=== PATIENT | male | born 2005 | race Caucasian/White ===

== ENCOUNTER 2023-04-30 14:47 | Emergency (ER) | payer SELFPAY ==
[~2023-04-30] VITALS: Ht 160 cm; Wt 126.0 kg
[2023-04-30 14:48] VITALS: BP 143/97
[2023-04-30] MEDS ORDERED: HYDROcodone/ACETAMINOPHEN 5 MG/325 MG TABLET PO ONE (15:15)
[2023-04-30] MEDS ORDERED: LIDOCAINE 1% INJ 20 ML VIAL INJ ONE (15:15)
[2023-04-30] MEDS ORDERED: cefTRIAXone 1,000 MG VIAL IV/IM IM ONE (15:15)
[2023-04-30] MEDS ORDERED: KETOROLAC 60 MG/2 ML VIAL IM ONE (15:15)
--- NOTE | 2023-04-30 15:17 | ED EENT ---
History of Present Illness General Chief Complaint: Ear Problems Stated Complaint: LILIA EAR PAIN Nursing Triage Note: Patient c/o bilat. ear pain. Patient states he went to the clinic last night and was Dx. with bilat. ear infections. Patient states he was prescribed Amoxicillin and ear drops. Patient states is pain is not getting better. Patient states he took IBU this am around 0540 and Tylenol around 1240 today, but denies taking any other doses for the pain. Source: patient Exam Limitations: no limitations History of Present Illness Date Seen by Provider: Apr 30, 2023 Time Seen by Provider: 15:01 Initial Comments This 18-year-old young man presents to the emergency room accompanied by a female hand stone polisher presumed to be his mother with complaints of bilateral ear pain that is rather severe in nature. He was seen at the [facility] walk-in clinic yesterday and diagnosed with bilateral ear infection. He was started on amoxicillin, 1 tablet twice daily. He has had 2 doses. He took ibuprofen 800 mg this morning at about 0530 and Tylenol this after reviewed at approximately 1245. He is still in significant pain. He has a mild elevation in blood pressure and tachycardia. He is noted to be diaphoretic but he is also wearing long sleeves on this 97 degree day. He refers to his ear infections as swimmers ear. He is not febrile at present and has not had a reported measured fever. Allergies and Home Medications Allergies Coded Allergies: No Known Drug Allergies (Unverified , 04/30/23) Patient Home Medication List Home Medication List Reviewed: Yes Amoxicillin (Amoxicillin) 250 Mg Tab.chew, 1,000 MG PO BID Prescribed by: UTE FISHER on 04/30/23 1518 Hydrocodone/Acetaminophen (Hydrocodone-Acetamin 5-325 mg) 5 Mg-325 Mg Tablet, 1 TAB PO Q4H PRN for PAIN BREAKTROUGH Prescribed by: UTE FISHER on 04/30/23 1519 Review of Systems Review of Systems Constitutional: see HPI Eyes: No Symptoms Reported Ears: See HPI Nose: no symptoms reported Mouth: no symptoms reported Throat: no symptoms reported Respiratory: no symptoms reported Cardiovascular: no symptoms reported Gastrointestinal: no symptoms reported Musculoskeletal: no symptoms reported Skin: no symptoms reported Neurological: No Symptoms Reported Hematologic/Lymphatic: No Symptoms Reported Immunological/Allergic: no symptoms reported Past Vrtpsmn-Wkheqi-Ehsueg Hx Patient Social History Tobacco Use?: No Smoking Status: Never a Smoker Use of E-Cig and/or Vaping dev: No Substance use?: No Alcohol Use?: No Immunizations Up To Date Influenza Vaccine Up-to-Date: No; Not Current Past Medical History Surgeries: Yes Adenoidectomy, Tonsillectomy Respiratory: No Cardiac: No Neurological: No Genitourinary: No Gastrointestinal: No Musculoskeletal: No Endocrine: No HEENT: No Cancer: No Psychosocial: No Physical Exam Vital Signs Vital Signs - First Documented 04/30/23 14:48 Temp 36.5 Pulse 122 Resp 12 B/P (MAP) 143/97 (112) O2 Delivery Room Air Height, Weight, BMI Height: '" Weight: lbs. oz. kg; 49.00 BMI Method: General Appearance: WD/WN, no apparent distress Eyes: bilateral eye normal inspection Ears: bilateral ear auricle normal, bilateral ear TM normal, bilateral ear swelling (Of the canals), bilateral ear tenderness (Canal), bilateral ear other (No mastoid tenderness bilaterally) Nose: normal inspection Mouth/Throat: pharynx normal, other (Postnasal drainage in the posterior pharynx) Neck: normal inspection, other (No enlarged cervical lymph nodes. Region of cervical lymph nodes is tender) Cardiovascular: no edema, no murmur, tachycardia Respiratory: lungs clear, normal breath sounds, no respiratory distress Neurologic/Psychiatric: no motor/sensory deficits, alert, normal mood/affect, oriented x 3 Skin: normal color, diaphoresis Progress/Results/Core Measures Results/Orders My Orders Orders - UTE DA SILVA MD Ketorolac Injection (Toradol Injection) (04/30/23 15:15) Hydrocodone/Apap 5/325 Tablet (Hydrocod (04/30/23 15:15) Ceftriaxone Iv/Im (Ceftriaxone Iv/Im) (04/30/23 15:15) Lidocaine 1% Inj 20 Ml (Xylocaine 1% Inj (04/30/23 15:15) Medications Given in ED Current Medications Medications Dose Ordered Sig/Margaret Route Start Time Stop Time Status Last Admin Dose Admin Acetaminophen/ Hydrocodone Bitart 1 ea ONCE ONCE PO 04/30/23 15:15 04/30/23 15:16 DC 04/30/23 15:24 1 EA Ceftriaxone Sodium 1,000 mg ONCE ONCE IM 04/30/23 15:15 04/30/23 15:16 DC 04/30/23 15:25 1,000 MG Ketorolac Tromethamine 60 mg ONCE ONCE IM 04/30/23 15:15 04/30/23 15:16 DC 04/30/23 15:26 60 MG Lidocaine HCl 2.1 ml ONCE ONCE INJ 04/30/23 15:15 04/30/23 15:16 DC 04/30/23 15:25 2.1 ML Vital Signs/I&O 04/30/23 14:48 Temp 36.5 Pulse 122 Resp 12 B/P (MAP) 143/97 (112) O2 Delivery Room Air Blood Pressure Mean: 112 Progress Progress Note : Progress Note WithPatient was treated with a Toradol injection and hydrocodone. Rocephin injection was administered to help expedite treatment of the otitis externa. Tympanic membranes appeared unremarkable no obvious perforation, erythema, or purulent effusion. Patient had only been taking 1 amoxicillin tablet twice daily. I advised him to increase his dosing to 1000 mg. He reported inability to swallow pills. Chewable tablets were prescribed. A small quantity of hydrocodone was prescribed for breakthrough pain. See discharge instructions for further discussion. His hypertension and tachycardia were likely secondary to pain response. Departure Impression Primary Impression: Bilateral otitis externa Qualified Codes: H60.333 - Swimmer's ear, bilateral Additional Impression: Otalgia of both ears Disposition: 01 HOME, SELF-CARE Condition: Stable Departure-Patient Inst. Decision time for Depature: 15:12 Referrals: [facility] (PCP/Family) Primary Care Physician Patient Instructions: Outer Ear Infection ED Add. Discharge Instructions: Drink plenty of clear liquids to stay well-hydrated. The Toradol injection you received in the ER takes the place of your ibuprofen dose. Do not take any more ibuprofen until 9:30 this evening. For primary pain control, take ibuprofen up to 600 mg every 6 hours as needed. For pain not controlled by ibuprofen, add either hydrocodone as prescribed or Tylenol (acetaminophen) up to 1000 mg every 6 hours as needed. Hydrocodone contains acetaminophen, so do not double up on acetaminophen dosing by taking both Tylenol and hydrocodone. Hydrocodone may cause drowsiness so do not drive, operate machinery, or make important decisions while on hydrocodone. Hydrocodone may also cause constipation, so you may wish to take a stool softener such as Colace while on hydrocodone. You should be taking amoxicillin 1000 mg every 12 hours. Please check the dosing of the amoxicillin you received and increase to 1000 mg per dose if it was not already prescribed that way. You should complete at least 10 days of antibiotics. You are being prescribed a weeks worth of chewable amoxicillin tablets. To complete the 10 days, you may continue using the tablets you were previously prescribed. If you cannot swallow them, they may be crushed and mixed with food such as applesauce, yogurt, etc. Return to care if you have worsening symptoms despite following these instructions. In particular, return if you have pain not responsive to the medications or you develop persistent fever of 100.4 or greater. All discharge instructions reviewed with patient and/or family. Voiced understanding. Scripts Amoxicillin (Amoxicillin) 250 Mg Tab.chew 1000 MG PO BID, #56 TAB Prov: UTE DA SILVA MD 04/30/23 Hydrocodone/Acetaminophen (Hydrocodone-Acetamin 5-325 mg) 5 Mg-325 Mg Tablet 1 TAB PO Q4H PRN for PAIN BREAKTROUGH, #12 TAB Prov: UTE DA SILVA MD 04/30/23 UTE DA SILVA MD Apr 30, 2023 15:17
[2023-04-30] MEDS ORDERED: ACHD5005 PO (15:18)
[2023-04-30] MEDS ORDERED: AMOX250T PO (15:18)
== END 2023-04-30 16:02 | disposition home or self-care (01) ==
LOC: ER FS 14:51
DX: H60.93 Unspecified otitis externa, bilateral (principal); Z28.310 Unvaccinated for COVID-19
CPT/HCPCS: 99284